=== PATIENT | male | born 1990 | race Caucasian/White ===

== ENCOUNTER 2017-03-22 20:27 | Inpatient (IN) | payer OTHER ==
[~2017-03-22] VITALS: Ht 172.7 cm; Wt 72.6 kg
[2017-03-22] MEDS ORDERED: LORAZEPAM INJ 2 MG/ML VIAL IV ONE (21:30)
[2017-03-22] MEDS ORDERED: GLUCAGON,HUMAN RECOMBINANT 1 MG/VIAL VIAL ONE (21:36)
[2017-03-22] MEDS ORDERED: GLUCAGON,HUMAN RECOMBINANT 1 MG/VIAL VIAL IV ONE (22:00)
[2017-03-23] VITALS: BP 123/76
[2017-03-23 01:00] VITALS: BP 122/75
== END 2017-03-23 01:00 | disposition home or self-care (01) | DRG 392 ==
LOC: ER 20:29 → MED 23:26
PROVIDERS: ADMIT Surgery; ATTEND Surgery
PROC: 0DC58ZZ Extirpation of Matter from Esophagus, Via Natural or Artificial Opening Endoscopic (ICD-10-PCS; principal; 2017-03-22 23:35)
PROC: 0DB98ZX Excision of Duodenum, Via Natural or Artificial Opening Endoscopic, Diagnostic (ICD-10-PCS; principal; 2017-03-22 23:35)
DX: K22.2 Esophageal obstruction (principal); T18.128A Food in esophagus causing other injury, initial encounter; X58.XXXA Exposure to other specified factors, initial encounter; Y93.9 Activity, unspecified; Y92.009 Unspecified place in unspecified non-institutional (private) residence as the place of occurrence of the external cause; K20.0 Eosinophilic esophagitis
CPT/HCPCS: 71020-TC; 88305-TC; A4606; J1610; Z7610